=== PATIENT | female | born 1965 | race Caucasian/White ===

== ENCOUNTER 2016-11-22 15:57 | Emergency (ER) | payer MEDICAID, OTHER ==
[~2016-11-22] VITALS: Ht 162.6 cm; Wt 68.0 kg
[~2016-11-22 15:57] MED LIST: AMLO10TA80 PO; HYDR25TA PO; LANTUS SUBCUT; LISI40TA4 PO; SITA100T11 PO
[2016-11-22] MEDS ORDERED: ACETAMINOPHEN 325MG TABLET PO ONE (18:45)
[2016-11-22] MEDS ORDERED: KETOROLAC 60MG/2ML VIAL IM ONE (20:30)
[2016-11-22 21:00] VITALS: BP 158/99
== END 2016-11-22 21:00 | disposition home or self-care (01) ==
LOC: ER 15:57
DX: M79.604 Pain in right leg (principal); M79.89 Other specified soft tissue disorders; I10 Essential (primary) hypertension; E11.9 Type 2 diabetes mellitus without complications; E78.00 Pure hypercholesterolemia, unspecified; Z86.73 Personal history of transient ischemic attack (TIA), and cerebral infarction without residual deficits; Z79.4 Long term (current) use of insulin
CPT/HCPCS: 93970; 99284; J1885; Z7610

== ENCOUNTER 2017-05-14 15:45 | Emergency (ER) | payer MEDICAID ==
[~2017-05-14] VITALS: Ht 157.5 cm; Wt 64.0 kg
[~2017-05-14 15:45] MED LIST changes: +ASPI-1159 PO
[2017-05-14] MEDS ORDERED: SODIUM CHLORIDE 0.9% 1,000 ML IV ONE ×2 (17:24→18:28)
[2017-05-14] MEDS ORDERED: ONDANSETRON HCL 4MG/2ML VIAL IV ONE (17:30)
[2017-05-14 17:58] LABS: BASOPHILS % 1.1 % (0.0-2.0); EOSINOPHILS % 0.3 % (0.0-5.0); HEMATOCRIT. 39.9 % (36.0-48.0); HEMOGLOBIN. 13.7 g/dL (12.0-16.0); LYMPHOCYTES % 34.3 % (20.0-50.0); MEAN CORPUSCULAR HEMOGLOBIN 29.7 pg (28.0-32.0); MEAN CORPUSCULAR VOLUME 86.7 fL (81.0-99.0); MONOCYTES % 5.4 % (2.0-8.0); NEUTROPHILS % 58.9 % (40.0-76.0); PLATELET 188 x1000/uL (130-400); RED CELL DISTRIBUTION WIDTH 13.4 % (11.6-14.6)
[2017-05-14 18:05] LABS: CHLORIDE 98 mEq/L (98-107); INR 1.1; PROTHROMBIN TIME 11.3 sec (9.4-11.6)
[2017-05-14 18:14] LABS: TROPONIN I 0.06 ng/mL (0.00-0.04)
[2017-05-14] MEDS ORDERED: INSULIN REGULAR (HUMULIN R) UD 100 UNITS/ML SYR IV ONE (18:30)
[2017-05-14 23:06] VITALS: BP 178/96
== END 2017-05-14 23:44 | disposition home or self-care (01) ==
LOC: ER 16:38
DX: E11.65 Type 2 diabetes mellitus with hyperglycemia (principal); R11.2 Nausea with vomiting, unspecified; R79.1 Abnormal coagulation profile; E78.00 Pure hypercholesterolemia, unspecified; I10 Essential (primary) hypertension; Z79.4 Long term (current) use of insulin; Z79.82 Long term (current) use of aspirin; Z86.73 Personal history of transient ischemic attack (TIA), and cerebral infarction without residual deficits; Z91.19 Patient's noncompliance with other medical treatment and regimen
CPT/HCPCS: 36415; 71045; 80053; 82962; 83880; 84484; 85025; 85610; 93005; 96361; 96374; 96375; 99285; J1815; J2405; J7030

== ENCOUNTER 2017-09-06 17:40 | Emergency (ER) | payer MEDICAID ==
[~2017-09-06] VITALS: Ht 157.5 cm; Wt 64.0 kg
[2017-09-06 18:56] LABS: BASOPHILS % 1.3 % (0.0-2.0); EOSINOPHILS % 0.8 % (0.0-5.0); HEMATOCRIT. 36.9 % (36.0-48.0); HEMOGLOBIN. 12.6 g/dL (12.0-16.0); LYMPHOCYTES % 37.1 % (20.0-50.0); MEAN CORPUSCULAR HEMOGLOBIN 29.7 pg (28.0-32.0); MEAN CORPUSCULAR VOLUME 87.2 fL (81.0-99.0); MEAN PLATELET VOLUME 7.7 fl (7.4-10.4); MONOCYTES % 4.9 % (2.0-8.0); NEUTROPHILS % 55.9 % (40.0-76.0); PLATELET 316 x1000/uL (130-400); RED BLOOD CELL COUNT 4.23 mill/uL (4.2-5.4); RED CELL DISTRIBUTION WIDTH 12.2 % (11.6-14.6)
[2017-09-06 19:02] LABS: CHLORIDE 103 mEq/L (98-107)
[2017-09-06 19:04] LABS: PROTHROMBIN TIME 10.3 sec (9.4-11.6)
[2017-09-06] MEDS ORDERED: ACETAMINOPHEN WITH CODEINE 300/30MG TABLET PO ONE (21:30)
[2017-09-07] MEDS ORDERED: KETOROLAC 30MG/ML VIAL IV NR (01:35)
[2017-09-07] MEDS ORDERED: SODIUM CHLORIDE 0.9% 1,000 ML IV NR (01:35)
[2017-09-07] MEDS ORDERED: INSULIN REGULAR (HUMULIN R) 300UNITS/3ML IV NR (02:00)
[2017-09-07 06:30] VITALS: BP 143/71
== END 2017-09-07 07:10 | disposition home or self-care (01) ==
LOC: ER 20:12
DX: L03.116 Cellulitis of left lower limb (principal); E11.65 Type 2 diabetes mellitus with hyperglycemia; E78.00 Pure hypercholesterolemia, unspecified; I10 Essential (primary) hypertension; Z86.73 Personal history of transient ischemic attack (TIA), and cerebral infarction without residual deficits; Z79.82 Long term (current) use of aspirin; Z79.4 Long term (current) use of insulin
CPT/HCPCS: 36415; 71045; 73590; 73610; 73620; 80053; 82962; 83880; 85025; 85610; 93971; 96361; 96374; 96375; 99285; J1815; J1885